=== PATIENT | female | born 2000 | race Caucasian/White ===

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

== ENCOUNTER 2022-03-25 00:58 | Emergency (ER) | payer OTHER ==
[~2022-03-25 00:58] MED LIST changes: +NORCO 5-325 TA1 EACH PO
[2022-03-25] MEDS ORDERED: NORCO 5-325 TA1 EACH PO (02:04)
[2022-03-25] MEDS ORDERED: NAPROXEN500 MG PO (02:04)
== END 2022-03-25 02:15 | disposition home or self-care (01) ==
LOC: FER 00:58
DX: S93.402A Sprain of unspecified ligament of left ankle, initial encounter (principal); F17.290 Nicotine dependence, other tobacco product, uncomplicated; W19.XXXA Unspecified fall, initial encounter; Y92.009 Unspecified place in unspecified non-institutional (private) residence as the place of occurrence of the external cause
CPT/HCPCS: 73610; 73630; J1885

== ENCOUNTER 2022-05-28 20:52 | Emergency (ER) | payer OTHER ==
[~2022-05-28 20:52] MED LIST changes: +NAPROXEN500 MG PO
== END 2022-05-29 00:52 | disposition home or self-care (01) ==
LOC: FER 20:52
DX: M25.572 Pain in left ankle and joints of left foot (principal); M79.672 Pain in left foot; W01.0XXA Fall on same level from slipping, tripping and stumbling without subsequent striking against object, initial encounter; Y92.009 Unspecified place in unspecified non-institutional (private) residence as the place of occurrence of the external cause
CPT/HCPCS: 73610; 73630